=== PATIENT | male | born 1950 | race Caucasian/White ===

== ENCOUNTER 2018-04-16 16:42 | Emergency (ER) | payer MEDICARE, BC ==
[~2018-04-16] VITALS: Ht 167.6 cm; Wt 77.1 kg
[2018-04-16] MEDS ORDERED: ZOCOR40 MG PO (17:25)
[2018-04-16] MEDS ORDERED: CYCLOBENZAPRINE10 MG PO (17:38)
[2018-04-16] MEDS ORDERED: NORCO 5-325 TA1 EACH PO (17:38)
== END 2018-04-16 18:30 | disposition home or self-care (01) ==
LOC: ED 16:42 → EDBD 16:43 → ED 18:30
DX: M62.838 Other muscle spasm (principal); Z79.899 Other long term (current) drug therapy
CPT/HCPCS: 99283